=== PATIENT | female | born 1985 | race Caucasian/White ===

== ENCOUNTER → 2024-10-13 | Day surgery (SDC) | payer BC ==
[2024-10-11 10:51] VITALS: BMI 19.1
[~2024-10-13] MED LIST: Bupivacaine/Epinephrine 0.25% 30 ML VIAL ONE; CEFAZOLIN 2 GM VIAL ONE; Lidocaine 1% PF 5 ML VIAL ONE; Lidocaine 2% 6 ML (Jelly) SYR ONE; PROPOFOL 20 ML ONE; ceFOXitin 1 GM VIAL ONE; fentaNYL 50 mcg/mL 1 mL Vial ONE
== END ==
LOC: CSHSDC 08:34
PROVIDERS: ATTEND Surgery
PROC: 06BY3ZC Excision of Hemorrhoidal Plexus, Percutaneous Approach (ICD-10-PCS; principal; 2024-10-13)
DX: K64.4 Residual hemorrhoidal skin tags (principal); F41.9 Anxiety disorder, unspecified; Z98.890 Other specified postprocedural states; Z79.899 Other long term (current) drug therapy; Z88.8 Allergy status to other drugs, medicaments and biological substances; Z88.6 Allergy status to analgesic agent
CPT/HCPCS: 88304; J0694; J2704; J3010